=== PATIENT | male | born 1995 | race Caucasian/White ===

== ENCOUNTER 2018-04-07 22:24 | Emergency (ER) | payer OTHER ==
[~2018-04-07] VITALS: Ht 177.8 cm; Wt 83.9 kg
[2018-04-07] MEDS ORDERED: LACTATED RINGERS 1,000 ML IV ONE ×2 (22:43→23:34)
[2018-04-07] MEDS ORDERED: ONDANSETRON 4 MG/2 ML (SDV) Z0FRAN IVP ONE (22:45)
[2018-04-07 22:53] LABS: BASOPHILS % (AUTO) 0 % (0-10); EOSINOPHILS % (AUTO) 0 % (0-10); HEMATOCRIT 49 % (40-54); HEMOGLOBIN 18.8 G/DL (13.3-17.7); LYMPHOCYTES # (AUTO) 0.4 X 10^3 (1.0-4.0); LYMPHOCYTES % (AUTO) 3 % (12-44); MEAN CORPUSCULAR HEMOGLOBIN 31 PG (25-34); MEAN CORPUSCULAR HGB CONC 38 G/DL (32-36); MEAN CORPUSCULAR VOLUME 81 FL (80-99); MEAN PLATELET VOLUME 10.5 FL (7.4-10.4); MONOCYTES # (AUTO) 0.4 X 10^3 (0.0-1.0); MONOCYTES % (AUTO) 3 % (0-12); NEUTROPHILS # (AUTO) 11.8 X 10^3 (1.8-7.8); NEUTROPHILS % (AUTO) 94 % (42-75); PLATELET COUNT 253 10^3/uL (130-400); RED BLOOD COUNT 6.05 10^6/uL (4.35-5.85); RED CELL DISTRIBUTION WIDTH 12.7 % (10.0-14.5); WHITE BLOOD COUNT 12.6 10^3/uL (4.3-11.0)
[2018-04-07 22:59] LABS: CLARITY,URINE CLEAR; COLOR,URINE YELLOW; GLUCOSE, URINE (UA) NEGATIVE (NEGATIVE); KETONES,URINE 4+ (NEGATIVE); LEUKOCYTE ESTERASE ,URINE 1+ (NEGATIVE); NITRITE,URINE NEGATIVE (NEGATIVE); PH,URINE 6 (5-9); PROTEIN,URINE 2+ (NEGATIVE); UROBILINOGEN,URINE 1 MG/DL (NORMAL)
[2018-04-07 23:11] LABS: ALANINE AMINOTRANSFERASE 22 U/L (0-55); ALBUMIN 5.4 GM/DL (3.2-4.5); ALKALINE PHOSPHATASE 96 U/L (40-136); AMYLASE 87 U/L (25-125); BILIRUBIN,TOTAL 4.3 MG/DL (0.1-1.0); BUN/CREATININE RATIO 18; CALCIUM 10.6 MG/DL (8.5-10.1); CARBON DIOXIDE 16 MMOL/L (21-32); CHLORIDE 103 MMOL/L (98-107); CREATININE SERUM 1.41 MG/DL (0.60-1.30); GFR ESTIMATED > 60; GLUCOSE 143 MG/DL (70-105); LIPASE 9 U/L (8-78); POTASSIUM 4.2 MMOL/L (3.6-5.0); SODIUM 139 MMOL/L (135-145); TOTAL PROTEIN 8.5 GM/DL (6.4-8.2)
[2018-04-07 23:12] LABS: BILIRUBIN,URINE 1+ (NEGATIVE)
[2018-04-07 23:13] LABS: WBC,URINE 0-2 /HPF
[2018-04-07 23:19] LABS: AMPHETAMINE SCREEN, URINE NEGATIVE (NEGATIVE); BARBITURATE SCREEN URINE NEGATIVE (NEGATIVE); BENZODIAZEPINES SCREEN URINE NEGATIVE (NEGATIVE); CANNABINOID SCREEN, URINE NEGATIVE (NEGATIVE); COCAINE SCREEN URINE NEGATIVE (NEGATIVE); METHADONE STAT NEGATIVE (NEGATIVE); METHAMPHETAMINE SCREEN URINE S NEGATIVE (NEGATIVE); OPIATE SCREEN URINE NEGATIVE (NEGATIVE); OXYCODONE STAT NEGATIVE (NEGATIVE); PROPOXYPHENE STAT NEGATIVE (NEGATIVE); TRICYCLIC ANTIDEPRESSANTS SCRE NEGATIVE (NEGATIVE)
[2018-04-07 23:20] LABS: BAND NEUTROPHILS 4 %; BASOPHILS % (MANUAL) 0 %; EOSINOPHILS % (MANUAL) 0 %; LYMPHOCYTES % (MANUAL) 5 %; MONOCYTES % (MANUAL) 3 %; NEUTROPHILS % (MANUAL) 88 %; RBC MORPH NORMAL
[2018-04-07] MEDS ORDERED: RX-ONDANSETRON 4 MG ODT (ZOFRAN) PPK #4 PO STA (23:59)
[2018-04-08] MEDS ORDERED: ONDN4T PO (00:01)
--- NOTE | 2018-04-08 00:01 | ED GI ---
General Chief Complaint: Abdominal/GI Problems Stated Complaint: N/V/D Nursing Triage Note: Pt reports N/V/D that began at 1300 today. Pt reports 4 episodes of vomiting and 12+ of diarrhea. Pt c/o chest tightness and SOB. Sepsis Screen: No Definite Risk Source of Information: Patient Exam Limitations: No Limitations History of Present Illness Date Seen by Provider: Apr 07, 2018 Time Seen by Provider: 22:45 Initial Comments PT ARRIVES VIA POV FROM HOME STATES HE "COULD FEEL SOMETHING WAS OFF" ON SATURDAY BEGAN HAVING NAUSEA/VOMITING/DIARRHEA TODAY AT 1300 HAS HAD "DIARRHEA AT LEAST A DOZEN TIMES TODAY" HAS VOMITED X 4, AND IS STILL NAUSEATED HAS HAD INTERMITTENT ABDOMINAL PAIN THAT MOVES AROUND ALL OVER ABDOMEN--STATES IF IT IS DOWN LOW, HE KNOWS HE IS GOING TO HAVE DIARRHEA. THEN IT WILL GO AWAY FOR A WHILE. HE STATES IT IT IS IN HIS UPPER ABDOMEN, HE KNOWS HE IS GOING TO THROW UP, THEN IT GOES AWAY NO PAIN NOW HAS POSSIBLY HAD A SLIGHT FEVER. BUT HAS NOT CHECKED HIS TEMP C/O FEELING DIZZY ALSO STATES "I STARTED TO LOSE MY SENSE OF REALITY" "I COULDN'T THINK STRAIGHT" HAS HAD MINIMAL INTAKE TODAY HAS NOT BEEN URINATING MUCH TODAY MULTIPLE FAMILY MEMBERS ALL ILL WITH SAME AND ALL WERE TOGETHER FOR HOLIDAY 04/03/18. BOTH GRANDPARENTS, HIS DAD, HIS UNCLE AND HIS SISTER HAVE ALL HAD THE SAME THING NO EGG PRODUCTS NO LETTUCE/GREENS STUFFING WAS STOVETOP AND WAS MADE SEPARATE AND BY ANOTHER FAMILY MEMBER--NOT COOKED INSIDE THE TURKEY. GIRLFRIEND WAS NOT PRESENT WITH PT'S FAMILY ON AND SHE IS NOT ILL. Allergies and Home Medications Allergies Coded Allergies: No Known Drug Allergies (Unverified , 04/07/18) Home Medications Ondansetron HCl 4 Mg Tab, 4 MG PO Q4H Prescribed by: THELMA CONNER on 04/08/18 0001 Patient Home Medication List Home Medication List Reviewed: Yes Review of Systems Review of Systems Constitutional: see HPI, dizziness, malaise, weakness EENTM: No Symptoms Reported Respiratory: No Symptoms Reported Cardiovascular: No Symptoms Reported Gastrointestinal: See HPI, Abdominal Pain, Diarrhea, Nausea, Poor Appetite, Poor Fluid Intake, Vomiting Genitourinary: See HPI Musculoskeletal: no symptoms reported Skin: no symptoms reported Psychiatric/Neurological: See HPI Endocrine: No Symptoms Reported Hematologic/Lymphatic: No Symptoms Reported Past Ramclob-Cstvka-Risogx Hx Patient Social History Alcohol Use: Denies Use Recreational Drug Use: No Smoking Status: Never a Smoker 2nd Hand Smoke Exposure: No Recent Foreign Travel: No Contact w/Someone Who Travel: No Recent Infectious Disease Expo: No Recent Hopitalizations: No Seasonal Allergies Seasonal Allergies: No Past Medical History Surgeries: Yes (MINOR FOOT SURGERY AGE 4) Respiratory: Yes (ASTHMA A CHILD) Asthma Cardiac: No Neurological: No Genitourinary: No Gastrointestinal: No Musculoskeletal: No Endocrine: No HEENT: No Cancer: No Psychosocial: Yes ADD/ADHD Integumentary: No Blood Disorders: No Adverse Reaction/Blood Tranf: No Physical Exam Vital Signs Vital Signs - First Documented 04/07/18 22:30 Temp 98.6 Pulse 81 Resp 11 B/P (MAP) 133/89 (104) Pulse Ox 100 O2 Delivery Room Air Capillary Refill : Less Than 3 Seconds Height/Weight/BMI Height: 5'10.00" Weight: 185lbs. oz. 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, no motor/sensory deficits, alert, normal mood/affect, oriented x 3 Skin: warm/dry, pallor Progress/Results/Core Measures Results/Orders Lab Results Laboratory Tests Test 04/07/18 22:40 04/07/18 22:53 Range/Units White Blood Count 12.6 H 4.3-11.0 10^3/uL Red Blood Count 6.05 H 4.35-5.85 10^6/uL Hemoglobin 18.8 H 13.3-17.7 G/DL Hematocrit 49 40-54 % Mean Corpuscular Volume 81 80-99 FL Mean Corpuscular Hemoglobin 31 25-34 PG Mean Corpuscular Hemoglobin Concent 38 H 32-36 G/DL Red Cell Distribution Width 12.7 10.0-14.5 % Platelet Count 253 130-400 10^3/uL Mean Platelet Volume 10.5 H 7.4-10.4 FL Neutrophils (%) (Auto) 94 H 42-75 % Lymphocytes (%) (Auto) 3 L 12-44 % Monocytes (%) (Auto) 3 0-12 % Eosinophils (%) (Auto) 0 0-10 % Basophils (%) (Auto) 0 0-10 % Neutrophils # (Auto) 11.8 H 1.8-7.8 X 10^3 Lymphocytes # (Auto) 0.4 L 1.0-4.0 X 10^3 Monocytes # (Auto) 0.4 0.0-1.0 X 10^3 Eosinophils # (Auto) 0.0 0.0-0.3 10^3/uL Basophils # (Auto) 0.0 0.0-0.1 10^3/uL Neutrophils % (Manual) 88 % Lymphocytes % (Manual) 5 % Monocytes % (Manual) 3 % Eosinophils % (Manual) 0 % Basophils % (Manual) 0 % Band Neutrophils 4 % Blood Morphology Comment NORMAL Sodium Level 139 135-145 MMOL/L Potassium Level 4.2 3.6-5.0 MMOL/L Chloride Level 103 98-107 MMOL/L Carbon Dioxide Level 16 L 21-32 MMOL/L Anion Gap 20 H 5-14 MMOL/L Blood Urea Nitrogen 25 H 7-18 MG/DL Creatinine 1.41 H 0.60-1.30 MG/DL Estimat Glomerular Filtration Rate > 60 BUN/Creatinine Ratio 18 Glucose Level 143 H 70-105 MG/DL Calcium Level 10.6 H 8.5-10.1 MG/DL Corrected Calcium 8.5-10.1 MG/DL Total Bilirubin 4.3 H 0.1-1.0 MG/DL Aspartate Amino Transf (AST/SGOT) 17 5-34 U/L Alanine Aminotransferase (ALT/SGPT) 22 0-55 U/L Alkaline Phosphatase 96 40-136 U/L Total Protein 8.5 H 6.4-8.2 GM/DL Albumin 5.4 H 3.2-4.5 GM/DL Amylase Level 87 25-125 U/L Lipase 9 8-78 U/L Urine Color YELLOW Urine Clarity CLEAR Urine pH 6 5-9 Urine Specific [place] 1.020 1.016-1.022 Urine Protein 2+ H NEGATIVE Urine Glucose (UA) NEGATIVE NEGATIVE Urine Ketones 4+ H NEGATIVE Urine Nitrite NEGATIVE NEGATIVE Urine Bilirubin 1+ H NEGATIVE Urine Urobilinogen 1 NORMAL MG/DL Urine Leukocyte Esterase 1+ H NEGATIVE Urine RBC (Auto) NEGATIVE NEGATIVE Urine RBC NONE /HPF Urine WBC 0-2 /HPF Urine Crystals NONE /LPF Urine Bacteria NONE /HPF Urine Casts NONE /LPF Urine Mucus LARGE H /LPF Urine Culture Indicated NO Urine Opiates Screen NEGATIVE NEGATIVE Urine Oxycodone Screen NEGATIVE NEGATIVE Urine Methadone Screen NEGATIVE NEGATIVE Urine Propoxyphene Screen NEGATIVE NEGATIVE Urine Barbiturates Screen NEGATIVE NEGATIVE Ur Tricyclic Antidepressants Screen NEGATIVE NEGATIVE Urine Phencyclidine Screen NEGATIVE NEGATIVE Urine Amphetamines Screen NEGATIVE NEGATIVE Urine Methamphetamines Screen NEGATIVE NEGATIVE Urine Benzodiazepines Screen NEGATIVE NEGATIVE Urine Cocaine Screen NEGATIVE NEGATIVE Urine Cannabinoids Screen NEGATIVE NEGATIVE My Orders Orders - THELMA CONNER DO Saline Lock/Iv-Start (04/07/18 22:43) Amylase (04/07/18 22:43) Cbc With Automated Diff (04/07/18 22:43) Comprehensive Metabolic Panel (04/07/18 22:43) Drug Screen Stat (Urine) (04/07/18 22:43) Lipase (04/07/18 22:43) Ua Culture If Indicated (04/07/18 22:43) Saline Lock/Iv-Start (04/07/18 22:43) Lactated Ringers (Lr 1000 Ml Iv Solution (04/07/18 22:43) Ondansetron Injection (Zofran Injectio (04/07/18 22:45) Manual Differential (04/07/18 22:40) Saline Lock/Iv-Start (04/07/18 23:34) Lactated Ringers (Lr 1000 Ml Iv Solution (04/07/18 23:34) Rx-Ondansetron Po (Rx-Zofran Po) (04/07/18 23:59) Medications Given in ED Current Medications Medications Dose Ordered Sig/Tanya Route Start Time Stop Time Status Last Admin Dose Admin Lactated Ringer's 1,000 ml @ 0 mls/hr Q0M ONCE IV 04/07/18 22:43 04/07/18 22:44 DC 04/07/18 22:54 999 MLS/HR Lactated Ringer's 1,000 ml @ 0 mls/hr Q0M ONCE IV 04/07/18 23:34 04/07/18 23:36 DC 04/07/18 23:44 999 MLS/HR Ondansetron HCl 4 mg ONCE ONCE IVP 04/07/18 22:45 04/07/18 22:46 DC 04/07/18 22:54 4 MG Vital Signs/I&O 04/07/18 04/08/18 22:30 00:42 Temp 98.6 98.6 Pulse 81 81 Resp 11 11 B/P (MAP) 133/89 (104) 125/80 (95) Pulse Ox 100 100 O2 Delivery Room Air 04/08/18 00:00 Intake Total 1000 ml Balance 1000 ml Blood Pressure Mean: 104 Progress Progress Note : Progress Note NAUSEA GONE, NO VOMITING OR DIARRHEA OR ABDOMINAL PAIN DURING ER STAY PT TOLERATING ICE CHIPS AND SIPS OF WATER STATES HE FEELS MUCH BETTER AT DISMISSAL Departure Impression Primary Impression: Gastroenteritis Disposition: 01 HOME, SELF-CARE Condition: Improved Departure-Patient Inst. Referrals: NO,LOCAL PHYSICIAN (PCP/Family) Primary Care Physician Patient Instructions: [id number] Add. Discharge Instructions: CLEAR LIQUIDS--WATER, BROTH, JELLO, GATORADE TOMORROW IF YOU ARE BETTER, ADD BRATS DIET TO CLEAR LIQUIDS--BANANAS, RICE, APPLESAUCE, TOAST, SALTINES FOLLOW UP WITH DR OF CHOICE IN 2-3 DAYS IF NO BETTER RETURN TO ER IF WORSE All discharge instructions reviewed with patient and/or family. Voiced understanding. Scripts Ondansetron HCl (Zofran) 4 Mg Tab 4 MG PO Q4H for Nausea/Vomiting, #10 TAB Prov: THELMA CONNER DO 04/08/18 Work/School Note: School/Childcare Release Date Seen in the Emergency Department: Apr 07, 2018 Return to School: Apr 09, 2018 Restrictions: No Restrictions THELMA CONNER DO Apr 08, 2018 00:01
[2018-04-08 00:42] VITALS: BP 125/80
== END 2018-04-08 01:10 | disposition home or self-care (01) ==
LOC: ER 22:26
DX: K52.9 Noninfective gastroenteritis and colitis, unspecified (principal); J45.909 Unspecified asthma, uncomplicated; F90.9 Attention-deficit hyperactivity disorder, unspecified type
CPT/HCPCS: 36415; 80053; 80306; 81000; 82150; 83690; 85007; 85027